=== PATIENT | female | born 1955 | race Caucasian/White ===

== ENCOUNTER → 2017-06-02 | Outpatient (CLI) | payer OTHER | LOC: FIMAGING 14:36 | PROVIDERS: ATTEND Obstetrics & Gynecology | DX: Z12.31 Encounter for screening mammogram for malignant neoplasm of breast (principal) | CPT/HCPCS: G0202 ==

== ENCOUNTER 2017-07-06 16:00 | Emergency (ER) | payer OTHER ==
--- NOTE | 2017-07-06 17:04 | CPEKG ---
Heart Rate: 65 RR Interval: 923 QRSD Interval: 92 QT Interval: 440 QTC Interval: 458 QRS [place]: -60 T Wave [place]: 83 EKG Severity - ABNORMAL ECG - EKG Impression: ATRIAL FIBRILLATION, V-RATE 52-86 EKG Impression: MULTIFORM VENTRICULAR PREMATURE COMPLEXES Electronically Signed By: Jerry Abel 06-Jul-2017 18:07:49
--- NOTE | 2017-07-06 17:04 | CPEKG ---
Heart Rate: 65 RR Interval: 923 QRSD Interval: 92 QT Interval: 440 QTC Interval: 458 QRS [place]: -60 T Wave [place]: 83 EKG Severity - ABNORMAL ECG - EKG Impression: ATRIAL FIBRILLATION, V-RATE 52-86 EKG Impression: MULTIFORM VENTRICULAR PREMATURE COMPLEXES Electronically Signed By: Jerry Abel 06-Jul-2017 18:07:49
--- NOTE | 2017-07-06 17:07 | EDPHY ---
H & P Stated Complaint: r arm pain/prominent vascular/neck/hx afib x 1yr on eliquis Source: Patient Exam Limitations: No limitations - Personal History Current Tetanus/Diphtheria Vaccine: Yes - Medical/Surgical History Hx Asthma: No Hx Chronic Respiratory Disease: No Hx Diabetes: No Hx Cardiac Disease: Yes Hx Renal Disease: No Hx Cirrhosis: No Hx Alcoholism: No Hx HIV/AIDS: No Hx Splenectomy or Spleen Trauma: No Other PMH: afib/autoimmune issues - Social History Smoking Status: Never smoked Time Seen by Provider: 07/06/17 17:02 HPI/ROS: HPI: This is a 62-year-old female presents with Chief Complaint: Right forearm swelling Location: Right forearm Quality: Swelling Duration: 2 days Signs and Symptoms: no redness, no warmth, no decreased range of motion, no radiculopathy, no chest pain, no SOB, no palpitations Timing: Constant Severity: [id number] Context: Patient was diagnosed with atrial fibrillation on Eliquis and metoprolol followed by local cardiology with planned ablation in the next 1-2 months presents today with sudden onset of right forearm swelling with minimal pain. She denies any redness/warmth/injury/repetitive use. She is right-hand dominant. She also noticed today that her right lateral neck has some discomfort upon waking mostly in her muscles. The discomfort worsens with moving her head in either direction laterally; flexion; or extension. She has no prior history of degenerative disc disease. 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 She has not tried anything for the discomfort including NSAIDs as she is on Eliquis. She denies any fever/chills/neck stiffness. Modifying Factors: None Comment: ROS: see HPI Constitutional: No fever, no chills, no weight loss Eyes: No blurred vision Respiratory: No shortness of breath, no cough Cardiovascular: No chest pain Gastrointestinal: No nausea, no vomiting, no diarrhea Genitourinary: No dysuria Extremities: No myalgias Neurologic: No weakness, no numbness Skin: No rashes Hematologic: No bruising, no bleeding MEDICAL/SURGICAL/SOCIAL HISTORY: Medical history: afib/autoimmune issues Surgical history: Denies Social history: Unemployed CONSTITUTIONAL: Pleasant extremely well-appearing adult white female, awake and alert, no obvious distress HEENT: Atraumatic and normocephalic, PERRL, EOMI. Tympanic membranes clear. Oropharynx clear, no exudate and moist pink mucosa. Airway patent. No lymphadenopathy. NECK: supple, no midline tenderness, flexion 45 degrees, extension 45 degrees, right and left lateral flexion 45 degrees. No meningismus. Cardiovascular: Normal S1/S2, regular rate, regular rhythm, without murmur rub or gallop. PULMONARY/CHEST: Symmetrical and nontender. Clear to auscultation bilaterally. Good air movement. No accessory muscle usage. ABDOMEN: Soft, nondistended, nontender, no rebound, no guarding, no peritoneal signs, no masses or organomegaly. No CVAT. EXTREMITIES: 2/2 radial pulses, right forearm shows the mild prominence and swelling on the radial aspect directly over the muscle; no fluctuance. RIGHT WRIST: Extension to 70, flexion to 80, radial deviation to 20 degree, ulnar deviation to 30, no scaphoid tenderness, no tenderness over ulnar styloid, no tenderness over radial styloid, no pain with Des test, no pain with Phalen test, no pain with Tinel test. [employer] strength 5/5, no deformities, no clubbing, no cyanosis or edema. NEUROLOGICAL: no focal neuro deficits. GCS 15. SKIN: Warm and dry, no erythema. no rash. Good capillary refill. (Shantal Yanez) Constitutional: Initial Vital Signs Temperature (C) 37.5 C 07/06/17 16:28 Heart Rate 66 07/06/17 16:28 Respiratory Rate 20 07/06/17 16:28 Blood Pressure 158/89 H 07/06/17 16:28 O2 Sat (%) 98 07/06/17 16:28 O2 Delivery Mode Room Air O2 (L/minute) 2 Allergies/Adverse Reactions: No Known Allergies Allergy (Verified 07/06/17 16:26) Home Medications: Medication Instructions Recorded Cyclobenzaprine [Flexeril 10 MG 10 mg PO TID PRN #10 tab 07/06/17 (*)] Eliquis 07/06/17 Imuran 50 mg (*) 07/06/17 Metoprolol Succinate 07/06/17 Medical Decision Making - Diagnostics EKG Interpretation: EKG: Complete interpretation has been separately recorded in the [email or web address] archive. Summary impression: AFib, rate 65, no ischemic changes (Jerry Abel) Imaging Results: Imaging Impressions Extremity Venous Study 07/06/17 17:00 Impression: No evidence of intraluminal thrombus venous system right upper extremity. Findings discussed with Shantal Yanez PAC at 18:46 hour, 07/06/2017. Cervical Spine X-Ray 07/06/17 17:01 Impression: 1. Multilevel degenerative disk disease involving the cervical spine. 2. Straightening of the mid cervical spine. This is nonspecific but can be seen with muscle spasm. 3. Facet hypertrophy suspected involving the cervical spine from C3 to C4 through C7-T1 and on the left side at the C1-C2 articulation. ED Course/Re-evaluation: EKG, labs, cervical x-ray, right upper extremity ultrasound ordered EKG reviewed with attending shows rate controlled atrial fibrillation; no acute ischemic changes Patient is asymptomatic for chest pain. 1740: Labs reviewed and grossly unremarkable Ultrasound shows no evidence of deep venous thrombosis. Cervical x-ray my read shows [id number] degenerative disc disease with straining in of the lordosis consistent with spasm. Showed patient x-rays at bedside. Given Flexeril with adequate relief as well as a prescription (Shantal Yanez) Differential Diagnosis: Differential diagnosis includes but is not limited to muscle strain; contusion; hematoma; degenerative disc disease (Shantal Yanez) - Data Points Laboratory Results: Laboratory Results 07/06/17 17:05 07/06/17 17:05 07/06/17 07/06/17 07/06/17 17:05 17:05 17:05 WBC 6.65 10^3/uL 10^3/uL (3.80-9.50) RBC 4.38 10^6/uL 10^6/uL (4.18-5.33) Hgb 14.8 g/dL g/dL (12.6-16.3) Hct 41.0 % % (38.0-47.0) MCV 93.6 fL fL (81.5-99.8) MCH 33.8 pg pg (27.9-34.1) MCHC 36.1 g/dL g/dL (32.4-36.7) RDW 13.7 % % (11.5-15.2) Plt Count 247 10^3/uL 10^3/uL (150-400) MPV 9.8 fL fL (8.7-11.7) Neut % (Auto) 52.6 % % (39.3-74.2) Lymph % (Auto) 39.7 % % (15.0-45.0) Bland % (Auto) 4.7 % % (4.5-13.0) Eos % (Auto) 1.8 % % (0.6-7.6) Baso % (Auto) 0.9 % % (0.3-1.7) Nucleat RBC Rel Count 0.0 % % (0.0-0.2) Absolute Neuts (auto) 3.50 10^3/uL 10^3/uL (1.70-6.50) Absolute Lymphs (auto) 2.64 10^3/uL 10^3/uL (1.00-3.00) Absolute Monos (auto) 0.31 10^3/uL 10^3/uL (0.30-0.80) Absolute Eos (auto) 0.12 10^3/uL 10^3/uL (0.03-0.40) Absolute Basos (auto) 0.06 10^3/uL 10^3/uL (0.02-0.10) Absolute Nucleated RBC 0.00 10^3/uL 10^3/uL (0-0.01) Immature Gran % 0.3 % % (0.0-1.1) Immature Gran # 0.02 10^3/uL 10^3/uL (0.00-0.10) PT 14.3 SEC SEC (12.0-15.0) INR 1.12 (0.83-1.16) APTT 28.5 SEC SEC (23.0-38.0) Sodium 139 mEq/L mEq/L (134-144) Potassium 4.3 mEq/L mEq/L (3.5-5.2) Chloride 103 mEq/L mEq/L (97-110) Carbon Dioxide 24 mEq/l mEq/l (22-31) Anion Gap 12 mEq/L mEq/L (8-16) BUN 25 mg/dL H mg/dL (7-23) Creatinine 1.0 mg/dL mg/dL (0.6-1.0) Estimated GFR 56 Glucose 87 mg/dL mg/dL (70-100) Calcium 9.7 mg/dL mg/dL (8.5-10.4) Medications Given: Discontinued Medications Cyclobenzaprine HCl (Flexeril 10 Mg Prepack#3) 1 btl FEMI PIZARRO ONE Stop: 07/06/17 19:09 Last Admin: 07/06/17 19:18 Dose: 1 btl Departure - Departure Disposition: Home, Routine, Self-Care Clinical Impression: Degenerative disc disease, cervical Muscle strain of right forearm Qualifiers: Encounter type: initial encounter Qualified Code(s): S56.911A - Strain of unspecified muscles, fascia and tendons at forearm level, right arm, initial encounter Condition: Good Instructions: Cyclobenzaprine (By mouth), Muscle Strain (ED), Degenerative Disc Disease (ED), Neck Pain (ED) Additional Instructions: Please rest your forearm as much as possible until swelling has resolved. You may apply an Jamel wrap for comfort. Ultrasound today did not show a blood clot. Neck x-rays showed degenerative disc disease and muscle spasm. RICE therapy and use Flexeril three times as day as needed for muscle spasms. If symptoms persist greater than 1 week, please follow-up with PCP and/or Neurosurgery as an MRI cervical may need to be ordered outpatient. Referrals: Omar Holt MD [Medical Doctor] - As per Instructions Prescriptions: Cyclobenzaprine [Flexeril 10 MG (*)] 10 mg PO TID PRN #10 tab PRN Reason: Spasms
[2017-07-06 17:13] LABS: PLATELET COUNT 247 10^3/uL (150-400)
[2017-07-06 17:22] LABS: INR 1.12 (0.83-1.16); PROTIME(PATIENT) 14.3 SEC (12.0-15.0)
[2017-07-06 19:03] VITALS: BP 134/93; PULSE 76; RESP 14; O2SAT 95
[2017-07-06] MEDS ORDERED: CYCLOBENZAPRINE 10MG PREPACK#3 BTL TAKEHOME ONE (19:08)
[2017-07-06 19:24] VITALS: TEMP 99.3
== END 2017-07-06 19:22 | disposition home or self-care (01) ==
DX: S56.911A Strain of unspecified muscles, fascia and tendons at forearm level, right arm, initial encounter (principal); M50.30 Other cervical disc degeneration, unspecified cervical region; Z79.01 Long term (current) use of anticoagulants; X58.XXXA Exposure to other specified factors, initial encounter

== ENCOUNTER → 2017-08-04 | Outpatient (CLI) | payer OTHER ==
[~2017-08-04] MED LIST: IOPAMIDOL (ISOVUE 370) 100 ML BTL IV ONE
== END ==
LOC: FIMAGING 09:03
PROVIDERS: ATTEND Internal Medicine Cardiovascular Disease
DX: I37.0 Nonrheumatic pulmonary valve stenosis (principal); I48.91 Unspecified atrial fibrillation
CPT/HCPCS: Q9967

== ENCOUNTER → 2017-08-18 | Outpatient (CLI) | payer OTHER | LOC: BMCIMAGING 14:08 | PROVIDERS: ATTEND Internal Medicine Rheumatology | DX: Z13.820 Encounter for screening for osteoporosis (principal); M85.80 Other specified disorders of bone density and structure, unspecified site ==

== ENCOUNTER → 2018-06-08 | Outpatient (CLI) | payer OTHER | LOC: FIMAGING 12:28 | PROVIDERS: ATTEND Obstetrics & Gynecology | DX: Z12.31 Encounter for screening mammogram for malignant neoplasm of breast (principal) ==